=== PATIENT | male | born 1955 | race Caucasian/White ===

== ENCOUNTER 2021-06-03 12:37 | Outpatient (CLI) | payer OTHER ==
[~2021-06-03 12:37] MED LIST: MEDROL4 MG PO; NEURONTIN300 MG PO; VICODIN 5/5001 UDTAB PO
== END 2021-06-03 12:48 | disposition home or self-care (01) ==
LOC: RAD 12:37
PROVIDERS: ATTEND Orthopaedic Surgery
DX: M54.5 Low back pain (principal); M54.6 Pain in thoracic spine

== ENCOUNTER 2021-08-17 09:52 | Outpatient (CLI) | payer OTHER | END 2021-08-17 09:54 | disposition home or self-care (01) | LOC: LAB 09:52 | PROVIDERS: ATTEND Orthopaedic Surgery | DX: E56.1 Deficiency of vitamin K (principal); D72.818 Other decreased white blood cell count; M81.8 Other osteoporosis without current pathological fracture; E88.89 Other specified metabolic disorders ==

== ENCOUNTER 2022-04-16 12:42 | Emergency (ER) | payer OTHER ==
[~2022-04-16] VITALS: Ht 185.4 cm; Wt 78.0 kg
[2022-04-16] MEDS ORDERED: DUI500 PO (17:42)
== END 2022-04-16 18:43 | disposition home or self-care (01) ==
LOC: ER 12:42
DX: N50.811 Right testicular pain (principal); N43.3 Hydrocele, unspecified; Z85.46 Personal history of malignant neoplasm of prostate

== ENCOUNTER → 2022-07-29 08:38 | Outpatient (CLI) | payer OTHER ==
[~2022-07-29 08:38] MED LIST changes: +DUI500 PO
== END | disposition home or self-care (01) ==
LOC: LAB 08:38
PROVIDERS: ATTEND Orthopaedic Surgery
DX: E88.9 Metabolic disorder, unspecified (principal); M81.8 Other osteoporosis without current pathological fracture; E83.42 Hypomagnesemia; E56.1 Deficiency of vitamin K